=== PATIENT | male | born 1995 | race Caucasian/White ===

== ENCOUNTER 2017-03-26 13:28 | Emergency (ER) | payer OTHER ==
[~2017-03-26] VITALS: Ht 182.9 cm; Wt 102.3 kg
[2017-03-26 13:29] VITALS: BP 139/76
[2017-03-26] MEDS ORDERED: TETRACAINE 0.5% OPHTH SOLN 4ML OU ONE (14:00)
== END 2017-03-26 15:28 | disposition home or self-care (01) ==
LOC: M ED 13:28
DX: G43.819 Other migraine, intractable, without status migrainosus (principal)

== ENCOUNTER 2018-05-17 22:26 | Emergency (ER) | payer OTHER ==
[2018-05-17] MEDS: LIDOCAINE 2% W/EPIN INJ 20ML **PRES FREE INJ (22:45)
== END 2018-05-17 23:42 | disposition home or self-care (01) ==
LOC: M ED 22:26
DX: K64.5 Perianal venous thrombosis (principal)
CPT/HCPCS: 10140

== ENCOUNTER 2023-01-13 14:03 | Emergency (ER) | payer OTHER ==
[~2023-01-13] VITALS: Ht 182.9 cm; Wt 117.4 kg
[~2023-01-13 14:03] MED LIST: BACT800T5 PO
[2023-01-13] MEDS ORDERED: FLUORESCEIN OPHTH 1MG STRIP OD ONE (16:40)
[2023-01-13] MEDS ORDERED: TETRACAINE 0.5% OPHTH SOLN 4ML OD ONE (16:40)
[2023-01-13 18:14] VITALS: BP 147/81
== END 2023-01-13 18:26 | disposition home or self-care (01) ==
LOC: M ED 14:03
DX: B30.3 Acute epidemic hemorrhagic conjunctivitis (enteroviral) (principal); Z79.2 Long term (current) use of antibiotics